=== PATIENT | female | born 1980 | race Caucasian/White ===

== ENCOUNTER 2018-05-28 21:07 | Emergency (ER) | payer MEDICAID ==
[~2018-05-28] VITALS: Ht 170.2 cm; Wt 95.5 kg
[~2018-05-28 21:07] MED LIST: FLOMAX0.4 MG PO; KEFLEX500 MG PO; NORCO 7.5/325 T1 TA1 PO; PREDNISONE10 MG PO; ZANTAC150 MG PO
[2018-05-28 21:14] VITALS: Ht 170.2 cm; Wt 95.5 kg
[2018-05-28 21:54] LABS: BASOPHILS 0.2 % (0-2); EOSINOPHILS 0.9 % (0-7); HEMATOCRIT 33.9 % (36.0-48.0); HEMOGLOBIN 10.6 g/dL (12-16); IMMATURE GRANULOCYTES 0.2 % (0-5); LYMPHOCYTES 24.4 % (15-50); MCH 23.4 pg (26.0-34.0); MCHC 31.3 g/dL (31.0-37.0); MCV 74.8 fL (80.0-100.0); MEAN PLATELET VOLUME 9.9 fL (7.4-10.4); MONOCYTES 6.8 % (2-11); NEUTROPHILS 67.5 % (40-80); PLATELET COUNT 260 10x3/uL (130-400); RBC 4.53 10x6/uL (4.00-5.40); RDW 16.7 % (11.5-14.5); WBC 8.7 10x3/uL (4.8-10.8)
[2018-05-28 22:06] LABS: APTT 24.4 SECONDS (22.8-39.4); INR 1.03 (0.85-1.17)
[2018-05-28 22:12] LABS: ALBUMIN 3.4 g/dL (3.4-5.0); ALKALINE PHOSPHATASE 70 U/L (46-116); ALT (SGPT) 39 U/L (10-68); BILIRUBIN - TOTAL 0.28 mg/dL (0.2-1.3); CALC OSMOLALITY 281 mosm/kg (275-300); CALCIUM 8.9 mg/dL (8.5-10.1); CARBON DIOXIDE 26.8 mmol/L (21.0-32.0); CHLORIDE - SERUM 104 mmol/L (98-107); CREATININE - SERUM 0.7 mg/dL (0.6-1.3); GLUCOSE 112 mg/dL (74-106); POTASSIUM - SERUM 3.8 mmol/L (3.5-5.1); PROTEIN - SERUM 7.4 g/dL (6.4-8.2); SODIUM 141 mmol/L (136-145); UREA NITROGEN 13 mg/dL (7-18); eGFR NON AFRICAN AMERICAN > 90 mL/min (90-120)
[2018-05-28 22:24] LABS: CKMB 0.6 U/L (0.0-3.6); CREATINE KINASE 88 UL (21-215); MAGNESIUM - SERUM 1.9 mg/dL (1.8-2.4); TROPONIN-I < 0.017 ng/mL (0.000-0.060)
[2018-05-29 02:05] VITALS: BP 145/87
== END 2018-05-29 02:05 | disposition home or self-care (01) ==
LOC: D.ER 21:07
PROVIDERS: Family Medicine
DX: R07.89 Other chest pain (principal)

== ENCOUNTER → 2018-06-17 10:04 | Outpatient (CLI) | payer OTHER ==
[2018-05-28 21:14] VITALS: BMI 32.9
--- NOTE | ~2018-06-17 | ST ---
PATIENT:BHAVESH HEDRICK MEDICAL RECORD: [id number] SEX: F LOCATION:[facility] ORDER #: ADMISSION DATE: 06/17/18 AGE OF PATIENT: 38 REFERRING PHYSICIAN: INTERPRETING PHYSICIAN: HILLARY PHELPS MD DATE OF SERVICE: 06/17/2018 PROCEDURE: Treadmill stress test with EKG imaging. INDICATION: Chest pain, family history of coronary artery disease. DESCRIPTION: The patient was exercised on standard Jluis protocol for 10 minutes achieving greater than 85% max dilated heart rate response with no EKG changes, no dysrhythmias, no angina. OVERALL IMPRESSION: Negative for inducible ischemia at adequate cardiac workload. TRANSINT:[id number] Voice Confirmation ID: [id number] DOCUMENT ID: [id number] HILLARY PHELPS MD CC: REBEKAH SANTOS [id number] DICTATION DATE: 06/19/18 1428 ON AWAKE COUNSELOR: 06/20/18 0141 [facility] CLI 06/17/18 [id number] [place] [address]
== END | disposition home or self-care (01) ==
LOC: D.HCCARDIO 10:00
DX: R07.9 Chest pain, unspecified (principal)

== ENCOUNTER 2018-07-17 08:00 | Outpatient (CLI) | payer OTHER ==
[2018-05-28 21:14] VITALS: Ht 170.2 cm; Wt 96.2 kg
[~2018-07-17] VITALS: Ht 170.2 cm; Wt 96.2 kg
[2018-07-17 13:12] LABS: BASOPHILS 0.3 % (0-2); EOSINOPHILS 1.2 % (0-7); HEMOGLOBIN 11.8 g/dL (12-16); IMMATURE GRANULOCYTES 0.1 % (0-5); LYMPHOCYTES 22.1 % (15-50); MCH 23.9 pg (26.0-34.0); MCHC 31.9 g/dL (31.0-37.0); MCV 75.1 fL (80.0-100.0); MEAN PLATELET VOLUME 10.1 fL (7.4-10.4); MONOCYTES 8.8 % (2-11); NEUTROPHILS 67.5 % (40-80); PLATELET COUNT 302 10x3/uL (130-400); RBC 4.93 10x6/uL (4.00-5.40); RDW 16.6 % (11.5-14.5); WBC 7.4 10x3/uL (4.8-10.8)
[2018-07-17 13:33] LABS: APTT 27.3 SECONDS (22.8-39.4); INR 1.05 (0.85-1.17); PROTIME 13.2 SECONDS (11.6-15.0)
== END 2018-07-17 08:01 | disposition home or self-care (01) ==
LOC: D.OPS 08:00 → EDSTATUS 07-20 07:30 → D.PAN 07-20 07:30
PROVIDERS: Anesthesiology; Obstetrics & Gynecology
DX: N94.6 Dysmenorrhea, unspecified (principal); Z01.812 Encounter for preprocedural laboratory examination

== ENCOUNTER 2018-07-27 07:58 | Day surgery (SDC) | payer OTHER ==
[2018-07-23 13:09] LABS: BASOPHILS 0.4 % (0-2); EOSINOPHILS 1.1 % (0-7); HEMATOCRIT 32.6 % (36.0-48.0); HEMOGLOBIN 10.3 g/dL (12-16); LYMPHOCYTES 25.7 % (15-50); MCH 23.7 pg (26.0-34.0); MCHC 31.6 g/dL (31.0-37.0); MCV 74.9 fL (80.0-100.0); MEAN PLATELET VOLUME 9.9 fL (7.4-10.4); MONOCYTES 8.8 % (2-11); PLATELET COUNT 280 10x3/uL (130-400); RBC 4.35 10x6/uL (4.00-5.40); RDW 16.7 % (11.5-14.5); WBC 5.4 10x3/uL (4.8-10.8)
[2018-07-23 13:31] LABS: APTT 26.9 SECONDS (22.8-39.4); INR 1.03 (0.85-1.17)
[~2018-07-27] VITALS: Ht 167.6 cm; Wt 94.1 kg
[2018-07-27] VITALS (10 sets, daily range): BP systolic 108–136; BP diastolic 57–84; Ht 167.6 cm; Wt 94.1 kg
[2018-07-27 09:04] LABS: HCG URINE NEGATIVE (NEGATIVE)
--- NOTE | 2018-07-27 12:31 | NUR ---
ANESTHESIA REPORTED PRE OP HR WAS 68 AND REMAINED LOW THROUGHOUT THE CASE. NO TREATMENT NEEDED FOR RATE LONG IT REMAINED IN THE 40'S
--- NOTE | 2018-07-27 12:48 | NUR ---
RECEIVED PT FROM VIA STRETCHER TO ROOM 1275. PT TRANSFERS ONTO BED PER SELF. VSS. HRRR WITHOUT AUDIBLE MURMUR. BBS CLEAR. BS X 4. ABDOMEN SOFT/NON-DISTENDED. 3 LAP INCISIONS WITH GLUE NOTED. NO REDNESS, SWELLING OR DRAINAGE NOTED. ICE PACK TO INCISIONS. NO VAGINAL DISCHARGE NOTED. NEG HOMANS' SIGN. PPP. NO EDEMA NOTED TO BLE. PIV TO LEFT FOREARM. SITE CLEAR. LR INFUSING AT 125 ML/HR. JUAREZ TO GRAVITY DRAINING CLEAR, YELLOW URINE. PT ORIENTED TO ROOM, BED, AND CALL LIGHT. SR UPX 2. CALL LIGHT IN REACH.
--- NOTE | 2018-07-27 13:02 | NUR ---
PT C/O ABDOMINAL PAIN. TORADOL 30 MG GIVEN SIVP OVER 2 MINUTES. PT INSTRUCTED ON MED. VERBALIZES UNDERSTANDING.
--- NOTE | 2018-07-27 13:30 | NUR ---
JUAREZ DC'D WITH 350 ML OF CLEAR, YELLOW URINE NOTED IN BAG. PT CORINNA WELL. INSTRUCTED TO NOTIFY NURSE OF NEED TO VOID FOR ASSISTANCE TO BR.
--- NOTE | 2018-07-27 14:00 | NUR ---
DR HICKMAN CALLS. NOTIFIED OF PT DESIRE TO STAY OVERNIGHT. ORDERS RECEIVED.
--- NOTE | 2018-07-27 14:29 | NUR ---
AMBULATES TO BATHROOM. UNABLE TO VOID AT THIS TIME.
--- NOTE | 2018-07-27 15:30 | NUR ---
PT LYING SUPINE IN BED. WAKES UPON ENTERING ROOM. DENIES PAIN OR NEEDS.
--- NOTE | 2018-07-27 16:02 | NUR ---
PT RINGS CALL LIGHT. RN TO BEDSIDE. PT REPORTS NEED TO VOID. PT ASSISTED TO SIDE OF BED, WITHOUT C/O DIZZINESS OR LIGHTHEADEDNESS. PT ASSISTED TO STANDING AT BEDSIDE WITHOUT C/O DIZZINESS. PT AMB TO BATHROOM WITH STAND BY ASSIST. STEADY GAIT NOTED. PT VOIDS 350 ML CLEAR YELLOW URINE INTO [place] HAT. AMB BACK TO BED WITHOUT DIFFICULTY. PT ASKS FOR SOMETHING TO EAT. WILL CHECK ORDERS.
--- NOTE | 2018-07-27 16:30 | NUR ---
PT PROVIDED WITH SANDWICH TRAY. DENIES NAUSEA.
--- NOTE | 2018-07-27 18:05 | NUR ---
PT UP TO BR TO VOID.
--- NOTE | 2018-07-27 19:20 | NUR ---
ASSESSMENT PER FLOW SHEET, VS OBTAINED, SALINE LOCK IN LEFT FA INTACT WITH NO REDNESS OR EDEMA, UMB AND 2 LOWER LAP INC WITH DB CDI WITH NO DRAINAGE NOTED, MELINA PAD PLACED OVER INC FOR COMFORT AND MOISTURE CONTROL, PT REPORTS FLATUS, NO BM AND VOIDING WITH NO DIFFICULTY, SCD'S ON AND WORKING PROPERLY, PT INST ON AND DEMONSTRATED I.S. WITH GOOD EFFORT, PT DENIES NEEDS OR PAIN AT THIS TIME, BED IN LOW POSITION, SIDE RAILS X 2, CALL LIGHT IN REACH
--- NOTE | 2018-07-27 20:09 | NUR ---
PT COMMAND CENTER ANALYST LIGHT, SCD'S DISCONNECTED, PT UP TO BR VIA AMB WITH ASSISTANCE, GAIT STEADY, PT VOIDED WITH NO DIFFICULTY, PT BACK TO BED, SCD'S RECONNECTED AND WORKING PROPERLY, PT DENIES FURTHER NEEDS OR PAIN AT THIS TIME
--- NOTE | 2018-07-27 21:10 | NUR ---
PT AWAKE, ADM 2100 MED PER MD ORDERS, SEE EMAR, WITH FRESH H20, PT DENIES NEEDS OR PAIN AT THIS TIME, SCD'S CONTINUE ON AND WORKING PROPERLY, BED IN LOW POSITION, SIDE RAILS X 2, CALL LIGHT IN REACH
--- NOTE | 2018-07-27 22:30 | NUR ---
PT RESTING WITH EYES CLOSED, RESP QUIET, NO DISTRESS NOTED, LEFT UNDISTURBED AT THIS TIME, PT'S DAUGHTER AT BEDSIDE
[2018-07-28 00:07] VITALS: BP 105/57
--- NOTE | 2018-07-28 00:07 | NUR ---
PT RESTING WITH EYES CLOSED, AROUSES TO SOFT VERBAL STIMULATION, VS OBTAINED, SALINE LOCK FLUSHED, ADM TORADOL DILUTED IN NS SIVP PER MD ORDERS, SEE EMAR, SALINE LOCK FLUSHED, SCD'S DISCONNECTED, PT UP TO BR VIA AMB BY SELF, GAIT STEADY, VOIDED WITH NO DIFFICULTY, PT BACK TO BED, SCD'S RECONNECTED AND WORKING PROPERLY, PT DENIES FURTHER NEEDS AT THIS TIME, PT'S DAUGHTER ASLEEP ON COUCH
--- NOTE | 2018-07-28 02:19 | NUR ---
PT RESTING WITH EYES CLOSED, RESP QUIET, NO DISTRESS NOTED, LEFT UNDISTURBED AT THIS TIME, PT'S DAUGHTER ASLEEP ON COUCH
--- NOTE | 2018-07-28 04:24 | NUR ---
PT RESTING WITH EYES CLOSED, RESP QUIET, NO DISTRESS NOTED, LEFT UNDISTURBED AT THIS TIME, PT'S DAUGHTER ASLEEP ON COUCH
[2018-07-28 05:59] VITALS: BP 121/60
--- NOTE | 2018-07-28 05:59 | NUR ---
PT RESTING WITH EYES CLOSED, AROUSES TO SOFT VERBAL STIMULATION, VS OBTAINED, SALINE LOCK FLUSHED, ADM TORADOL DILUTED IN NS SIVP PER MD ORDERS, SEE EMAR, SALINE LOCK FLUSHED, SCD'S CONTINUE ON AND WORKING PROPERLY, PT REQUESTED AND SERVED FRESH H20 AND APPLE JUICE, PT DENIES FURTHER NEEDS, PT'S DAUGHTER ASLEEP ON COUCH
[2018-07-28 07:40] VITALS: BP 103/55
--- NOTE | 2018-07-28 07:40 | NUR ---
PT CALLS OUT [employer] PACKER LIGHT REQUESTING PAIN MEDICATION. THIS RN TO ROOM. PT RATES PAIN 4/10 AT ABD INCISIONS. PT ADMIN PRN PERCOCET 5/325MG ORDERED, SEE EMAR FOR DOC. SHIFT ASSESSMENT COMPLETED, VSS, SEE FLOWSHEET FOR DOC. PT AAOx3. 3 LAP INCISIONS ON ABD ARE C/D WITH DERMABOND INTACT. PT DENIES VAGINAL BLEEDING, PERIPAD DRY. LEFT FOREARM PIV REMOVED WITHOUT INCIDENT NO LONGER INDICATED. PRESSURE HELD AND BANDAID APPLIED. PT INFORMED OF DR HICKMAN'S ORDER FOR D/C TO HOME DISCUSSED, PLAN OF CARE DISCUSSED. PT PHONES FAMILY MEMBER TO COME TO HOSPITAL TO DRIVE HER HOME SHORTLY. FANS DELIVERS BREAKFAST TRAY TO ROOM AT THIS TIME. PT SITS UP IN BED TO EAT BREAKFAST, DENIES NEEDS. SRUx2, CL IN REACH. WILL PROCEED WITH D/C TO HOME ORDERED.
[2018-07-28] MEDS ORDERED: NEURONTIN 300300 MG PO (08:22)
[2018-07-28] MEDS ORDERED: MOBIC7.5 MG PO (08:23)
[2018-07-28] MEDS ORDERED: PERCOCET 5-3251 TAB PO (08:24)
--- NOTE | 2018-07-28 08:44 | NUR ---
PRESCRIPTIONS X3, PT MED REC, DRUG DATA INFO SHEETS GIVEN. DISCHARGE INST GIVEN. PT HEALTH SUMMARY GIVEN. PT DENIES QUESTIONS. UP TO DRESS.
--- NOTE | 2018-07-28 09:38 | NUR ---
rings call light- states she is ready to go home. denies any questions. to auto via w/c.
--- NOTE | 2018-07-31 07:46 | OP ---
PATIENT NAME: BHAVESH HEDRICK MEDICAL RECORD: [id number] :80 LOCATION:[facility] ADMISSION DATE: SURGEON: MOIZ HICKMAN MD DATE OF OPERATION: 07/27/2018 PREOPERATIVE DIAGNOSES: 1. Dysmenorrhea. 2. Menorrhagia. POSTOPERATIVE DIAGNOSES: 1. Dysmenorrhea. 2. Menorrhagia. PROCEDURES: 1. Diagnostic laparoscopy. 2. Bilateral salpingectomy. 3. Laparoscopic subtotal hysterectomy. SURGEON: Mozi Hickman MD ANESTHESIOLOGIST: Mj Tinajero MD ANESTHETIC: General anesthetic. FINDINGS: Uterus was enlarged and irregular and with irregular contour. Ovaries were unremarkable. Tubes were unremarkable. SPECIMENS: Bilateral tubes and uterus without cervix. SPECIMEN DISPOSITION: Pathology. ESTIMATED BLOOD LOSS: Less than or equal to 100 cc. FLUIDS: Lactated Ringer's, 1800 cc. URINE OUTPUT: Clear urine, 300 cc. COMPLICATIONS: None. DRAINS: Simon to gravity, discontinued in women's services. INDICATION: The patient is a 38-year-old female with pelvic pain. The patient's pains are worse during her cycle and with intimacy. The patient has been tried on conservative therapy without results. The patient desires definitive therapy for pelvic pain. DESCRIPTION OF PROCEDURE: After informed consent was assured, the patient was taken to the operating room, where anesthetic was obtained without difficulty. The patient was now prepped and draped in usual sterile fashion. An incision was made at the umbilicus to accommodate a 5-mm trocar. Pneumoperitoneum was developed and the patient was placed in Trendelenburg position. Accessory ports were now placed in the left and right lower quadrants. The right lower quadrant port was a 12-mm port. Through the left port, a grasper was inserted. Right tube was elevated. Using a coagulation cutter, the tube was freed from its attachments to the adnexa. This dissection was carried out underneath the tube OPERATIVE REPORT [id number] BHAVESH HEDRICK across the uteroovarian and round ligaments. The anterior leaf of the broad ligament was opened and the bladder flap was developed to the midline. Posterior leaf was now opened. The vessels of the right side were skeletonized, compressed, coagulated, and . Attention was now directed to the left adnexa. The left cornual region was elevated. The tube and uteroovarian ligament were compressed, coagulated, and here. The dissection was carried down over the round ligament and anterior leaf of the broad ligament was opened. The bladder flap was now developed to the midline. Posteriorly, the vessels are skeletonized, compressed, coagulated, and to the level of the internal os. Now, using a Harmonic scalpel, the uterus was removed from its attachments to the cervix at the level of the internal os. Using a reverse cone technique, this dissection starts on the left and concludes on the right. The internal os was cauterized. The uterus was now removed with PlasmaSORD, which had been placed in the right lower quadrant incision for the 12-mm port. The uterus was removed in several segments. The pelvis was irrigated and all irrigant was removed. The 12-mm port replaced the PlasmaSORD. Straight portions of the uterus were now removed. The left tube was now elevated from the right, and using coagulation cutter, removed from its attachments. The tube was removed through the 12-mm port and passed to the attendant. Again, the pelvis was irrigated and irrigant was removed. Adequate hemostasis had been achieved. Interceed was placed over the cervical stump. Pneumoperitoneum was released as sponge count was correct times 2. The skin was reapproximated with a subcuticular stitch after removal of all ports. TRANSINT:[id number] Voice Confirmation ID: [id number] DOCUMENT ID: [id number] MOIZ HICKMAN MD at 0746 CC: [id number] DICTATION DATE: 07/27/18 1217 PATENT PARALEGAL: 07/27/18 1834 [facility] 07/28/18 [address] [place] [address]
== END 2018-07-28 09:40 | disposition home or self-care (01) ==
LOC: D.OPS 07:58 → D.PAN 09:00 → D.OPS 09:45 → D.LD 12:51 → D.OPS 07-28 09:40
PROVIDERS: Anesthesiology; Obstetrics & Gynecology
DX: N94.10 Unspecified dyspareunia (principal); N94.5 Secondary dysmenorrhea; N92.0 Excessive and frequent menstruation with regular cycle; Z79.2 Long term (current) use of antibiotics; F32.9 Major depressive disorder, single episode, unspecified; I10 Essential (primary) hypertension; I51.9 Heart disease, unspecified; Z01.812 Encounter for preprocedural laboratory examination

== ENCOUNTER 2018-08-03 15:11 | Emergency (ER) | payer OTHER ==
[~2018-08-03 15:11] MED LIST changes: +MOBIC7.5 MG PO; +NEURONTIN 300300 MG PO; +PERCOCET 5-3251 TAB PO
[2018-08-03 15:21] VITALS: Ht 167.6 cm
[2018-08-03 16:10] LABS: BASOPHILS 0.2 % (0-2); EOSINOPHILS 1.8 % (0-7); HEMATOCRIT 35.7 % (36.0-48.0); HEMOGLOBIN 11.3 g/dL (12-16); LYMPHOCYTES 27.7 % (15-50); MCH 23.8 pg (26.0-34.0); MCHC 31.7 g/dL (31.0-37.0); MCV 75.3 fL (80.0-100.0); MEAN PLATELET VOLUME 10.2 fL (7.4-10.4); MONOCYTES 7.1 % (2-11); NEUTROPHILS 63.2 % (40-80); PLATELET COUNT 287 10x3/uL (130-400); RBC 4.74 10x6/uL (4.00-5.40); RDW 15.8 % (11.5-14.5); WBC 6.1 10x3/uL (4.8-10.8)
[2018-08-03 16:27] LABS: ALBUMIN 3.3 g/dL (3.4-5.0); ALKALINE PHOSPHATASE 71 U/L (46-116); ALT (SGPT) 78 U/L (10-68); BILIRUBIN - TOTAL 0.27 mg/dL (0.2-1.3); CALC OSMOLALITY 279 mosm/kg (275-300); CALCIUM 8.9 mg/dL (8.5-10.1); CARBON DIOXIDE 25.9 mmol/L (21.0-32.0); CHLORIDE - SERUM 104 mmol/L (98-107); CREATININE - SERUM 0.6 mg/dL (0.6-1.3); GLUCOSE 114 mg/dL (74-106); POTASSIUM - SERUM 3.8 mmol/L (3.5-5.1); PROTEIN - SERUM 7.4 g/dL (6.4-8.2); SODIUM 140 mmol/L (136-145); UREA NITROGEN 12 mg/dL (7-18); eGFR NON AFRICAN AMERICAN > 90 mL/min (90-120)
[2018-08-03 17:11] LABS: APPEARANCE CLEAR (CLEAR); BILIRUBIN NEGATIVE (NEGATIVE); COLOR YELLOW (YELLOW); GLUCOSE NEGATIVE (NEGATIVE); KETONE NEGATIVE (NEGATIVE); NITRITE NEGATIVE (NEGATIVE); PROTEIN NEGATIVE (NEGATIVE); SPECIFIC GRAVITY 1.015 (1.005-1.020); UROBILINOGEN NORMAL (NORMAL)
[2018-08-03 17:14] LABS: RED CELLS - URINE 0-5 /hpf (0-5)
[2018-08-03 17:15] LABS: BACTERIA MODERATE /hpf (NONE SEEN)
[2018-08-03] MEDS ORDERED: PERCOCET 5-3251 TAB PO (17:36)
[2018-08-03 18:28] VITALS: BP 146/92
== END 2018-08-03 18:13 | disposition home or self-care (01) ==
LOC: D.ER 15:11
PROVIDERS: Family Medicine
DX: G89.18 Other acute postprocedural pain (principal)